=== PATIENT | male | born 1965 | race Caucasian/White ===

== ENCOUNTER 2020-08-03 23:10 | Observation (INO) | payer BC, SELFPAY ==
--- NOTE | ~2020-08-03 | XR_ITS ---
EXAMINATION: XR chest 1V portable DATE: 08/03/2020 23:50 INDICATION: Left-sided chest pain TECHNIQUE: frontal view of the chest was obtained. COMPARISON: Chest radiograph dated 07/10/2018 FINDINGS: The lungs remain clear with no focal airspace opacities, pulmonary edema, pleural effusion or pneumot horax. The cardiomediastinal silhouette is normal. Visualized bones and soft tissues are unremarkable . IMPRESSION: 1. No acute cardiopulmonary disease. Reviewed, dictated and finalized at location A.
[2020-08-03 23:22] VITALS: BP 203/107; PULSE 75; RESP 12; O2SAT 99
--- NOTE | 2020-08-03 23:36 | ECG_ITS ---
Measurements Intervals [place] Rate: 71 P: 36 [place]: 173 QRS: 26 QRSD: 132 T: 15 QT: 385 QTc: 420 Interpretive Statements SINUS RHYTHM INTRAVENTRICULAR CONDUCTION DELAY BORDERLINE T WAVE ABNORMALITY- INFERIOR LEADS BASELINE WANDER- V3 BORDERLINE ECG Electronically Signed On 08-04-2020 7:06:55 CDT by Inocencio Alvarez D.O.
--- NOTE | 2020-08-03 23:44 | ED.CHESTPAIN ---
HPI - Chest Pain General Chief Complaint: Chest Pain Stated Complaint: Chest Pain Time Seen by Provider: 08/03/20 23:12 Source: RN notes reviewed History of Present Illness HPI narrative: Patient presents emergency department from home for chest pain. Patient states he has been having some mid to left-sided chest pain described as a tightness over the past day that has been intermittent and has not been present for the past 2 hours the pain radiates in the left arm. States is associated with a feeling of indigestion. He denies any fevers or chills shortness of breath abdominal pain vomiting or any other symptoms patient denies any previous cardiac history Related Data Home Medications Medication Instructions Recorded Confirmed aspirin 81 mg PO DAILY 08/25/19 09/01/19 Allergies Allergy/AdvReac Type Severity Reaction Status Date / Time Penicillins Allergy Intermediate Hives Verified 09/29/19 12:39 Review of Systems Review of Systems: Narrative: Gen.: Denies fevers or chills ENT: Denies congestion Respiratory: Denies shortness of breath or cough CV: See HPI GI: Denies abdominal pain nausea, emesis or diarrhea Musculoskeletal: Denies back pain or muscle pain Neuro: Denies numbness, tingling, weakness or focal weakness Skin: Denies rash Except as documented, all other systems reviewed and negative [facility] Past Medical History Medical History Diabetes HTN (hypertension) Obesity Family History Family History (System 09/29/19 @ 12:39 by Comfort Phillip) Mother Family history of malignant neoplasm of breast in first degree relative Patient's mother is Father Patient's father is Social History Social History Smoking status: Never smoker Second hand tobacco smoke exposure: No Alcohol intake: current Gender identity (if verbalized by the patient): Male Exam Narrative: Exam Narrative: APPEARANCE: No acute distress, nontoxic, resting in bed EYES: EOMI HEENT: Normocephalic, atraumatic, OMM RESPIRATORY: No respiratory distress Clear to auscultation bilaterally with no rhonchi wheezing or rales. CARDIOVASCULAR: Regular rate and rhythm without murmurs rubs or gallops. Chest: Tender palpation over the left anterior chest wall no swelling or ecchymosis ABDOMINAL: Soft, nondistended, mild tenderness epigastric region no tenderness right upper quadrant, left upper quadrant right lower quadrant left lower quadrant no rebound or guarding MUSCULOSKELETAl: Moves all extremities. No clubbing, cyanosis or edema. NEURO: Awake and alert. Following commands, speech normal, no focal deficits SKIN:: Warm, dry. No rashes lesions or abrasions PSYCHIATRIC: Normal affect/mood, Course Course Emergency Course: Patient states pain is resolved at this time Discussed with Dr. Hall presentation work-up. Agrees with admission of the chest pain center Discussed with patient and family results of workup and diagnosis. Discussed need for admission. Patient and family understand and agree to current treatment plan Vital Signs Vital signs: Vital Signs Pulse Rate 75 08/03/20 23:22 Respiratory Rate 12 08/03/20 23:22 Blood Pressure 203/107 H 08/03/20 23:22 Pulse Oximetry 99 08/03/20 23:22 Pulse Rate 65 08/04/20 01:06 Respiratory Rate 12 08/04/20 01:06 Blood Pressure 146/88 H 08/04/20 01:06 Pulse Oximetry 94 08/04/20 01:06 MDM - Chest Pain Lab Data Result diagrams: 08/03/20 23:40 08/03/20 23:40 Labs: Lab Results 08/03/20 08/03/20 08/03/20 Range/Units 23:40 23:40 23:40 WBC 8.1 (4.5-10.0) K/mm3 RBC 5.40 (4.6-6.20) M/mm3 Hgb 16.4 (14.0-18.0) g/dL Hct 46.7 (42.0-52.0) % MCV 86.5 (80-100) fl MCH 30.4 (26-34) pg MCHC 35.1 (32-36) g/dl RDW 12.2 (11.5-14.5) % Plt Count 361
[2020-08-03 23:51] LABS: Basophils Percent Auto 0.2 % (0.2-1.2); Eosinophils Absolute Auto 0.1 K/mm3 (0-0.3); Eosinophils Percent Auto 0.6 % (0-4.4); Hematocrit 46.7 % (42.0-52.0); Hemoglobin 16.4 g/dL (14.0-18.0); Immature Granulocyte Absolute 0.03 K/mm3 (0.00-0.031); Immature Granulocyte Percent A 0.4 % (0-0.5); Lymphocytes Absolute Auto 2.82 K/mm3 (0.9-3.2); Mean Corpuscular HGB Conc 35.1 g/dl (32-36); Mean Corpuscular Hemoglobin 30.4 pg (26-34); Mean Corpuscular Volume 86.5 fl (80-100); Mean Platelet Volume 10.8 fl (7.4-10.4); Monocytes Absolute Auto 0.6 K/mm3 (0.1-0.6); Monocytes Percent Auto 7.1 % (2.6-8.5); Neutrophils Absolute Auto 4.6 K/mm3 (1.3-6.7); Neutrophils Percent Auto 56.7 % (45.5-73.1); Platelet Count Result 361 k/mm3 (150-375); Red Cell Distribution Width 12.2 % (11.5-14.5); White Blood Count 8.1 K/mm3 (4.5-10.0)
[2020-08-04] VITALS (13 sets, daily range): BP systolic 129–168; BP diastolic 82–99; PULSE 63–80; RESP 12–20; TEMP 36.2–36.8; O2SAT 94–100; BMI 29.1
[2020-08-04 00:01] LABS: Prothrombin Time 12.7 Seconds (11.1-14.7)
[2020-08-04 00:16] LABS: Troponin I < 0.012 ng/mL (0.000-0.034)
[2020-08-04 00:20] LABS: Alanine Aminotransferase 45 U/L (4-50); Albumin Level 5.1 g/dL (3.5-5.1); Alkaline Phosphatase 66 U/L (38-126); Anion Gap 12 mmol/L (8-16); Aspartate Amino Transferase 30 U/L (17-59); Bilirubin,Total 0.9 mg/dL (0.2-1.3); Blood Urea Nitrogen 16 mg/dL (9-20); Calcium 9.9 mg/dL (8.4-10.2); Carbon Dioxide 29 mmol/L (22-30); Chloride 98 mmol/L (98-107); Estimated Glomerular Filt Rate > 60; Glucose 193 mg/dL (75-110); Lipase 170 U/L (23-300); Potassium 3.4 mmol/L (3.4-5.0); Sodium 139 mmol/L (137-145)
[2020-08-04] MEDS: ONDANSETRON INJ 4 MG/2 ML VIAL IV PUSH (00:51)
[2020-08-04] MEDS: KETOROLAC 30 MG/ML VIAL (*BKC) IV PUSH (00:51)
--- NOTE | 2020-08-04 01:21 | PC.NURSE ---
called lab to add on Lipid Panel
[2020-08-04 01:31] LABS: Cholesterol 247 mg/dL (0-200); HDL Direct 36 mg/dL; Triglycerides 419 mg/dL (<150)
[2020-08-04] MEDS: ASPIRIN 81 MG CHEWABLE TABLET 324 MG PO (01:33)
[2020-08-04 01:42] LABS: LDL Cholesterol Direct 158 mg/dL
--- NOTE | 2020-08-04 01:46 | ADMGEN ---
This patient, Kennedy Diaz, was admitted to IMU Room 213-01 at 0145. Patient/family oriented to hospital policies and general routines including ID bracelet, bed and alarms, visiting hours, pain management, procedures, bathroom and other care routines, personal items, smoking policy, room service/diet, and visiting hours. Information on how to activate the Rapid Response Team has been discussed. Patient/Family are encouraged to report perceived risks to care and to ask questions if they do not understand what they are told or what they should do.
[2020-08-04 03:04] LABS: Troponin I < 0.012 ng/mL (0.000-0.034)
[2020-08-04 06:40] LABS: Troponin I < 0.012 ng/mL (0.000-0.034)
--- NOTE | 2020-08-04 07:19 | ECG_ITS ---
Measurements Intervals [place] Rate: 74 P: 38 [place]: 162 QRS: 25 QRSD: 113 T: 2 QT: 390 QTc: 435 Interpretive Statements SINUS RHYTHM WITH SINUS ARRHYTHMIA INTRAVENTRICULAR CONDUCTION DELAY NONSPECIFIC T-WAVE ABNORMALITY- INFERIOR LEADS BORDERLINE ECG Electronically Signed On 08-04-2020 19:32:59 CDT by Inocencio Alvarez D.O.
[2020-08-04 09:43] LABS: Glucose Point of Care 170 (65-105)
--- NOTE | 2020-08-04 14:26 | PM.SD ---
Same Day Admit/Disch: HPI History of Present Illness Chief complaint: Chest Pain Narrative: Kennedy Diaz is a 54 year old male who is followed by Dr. Burkett for is hypertension, mixed hyperlipidemia and diabetes, who was admitted for chest and epigastric discomfort for observation. The patient has no history of heart disease but does have a ?nervous stomach.? Yesterday he had some chest discomfort which started the morning and he felt like his fingers on the left side were tingling. He had poor appetite. His epigastric area felt like ?there were 2 monsters in there fighting.? He took a Pepcid which usually works but this time it did not. He had some hot flashes and sometimes it felt like he needed to take a deep breath. He came to the emergency room and his blood pressure was 203/107. He was given a GI cocktail with relief and admitted. His troponins were all negative. EKGs without ischemic changes. The patient has hypertension, diabetes, hypertriglyceridemia, and hypercholesterolemia. He was tried on atorvastatin once but had elevated liver enzymes. No smoking. He admits that he is noncompliant with his b.i.d. metformin, and does not eat well. He has been trying to exercise, doing a fast run/jog in the park which is a about a mile, with no particular exertional problems. He also walks a lot at work. He was considering getting a coronary calcium scan. Nonsmoker, no family history of premature CAD. 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 Has 2 grown sons and 1 teenage daughter. . Smoking status: Never smoker Second hand tobacco smoke exposure: No Alcohol intake: never Substance use: never Gender identity (if verbalized by the patient): Male Spiritual care concerns: No Same Day Admit/Disch: Med Pre-admit Medications Home Medications Medication Instructions Recorded Confirmed Type aspirin 81 mg PO DAILY 08/25/19 08/04/20 History metformin 500 mg tablet 500 mg PO BID #180 tablet 05/19/20 08/04/20 Rx valsartan 320 1 tablet PO DAILY #90 tablet 05/19/20 08/04/20 Rx mg-hydrochlorothiazide 25 mg tablet omeprazole magnesium [Prilosec OTC] 20 mg PO DAILY #30 tablet 08/04/20 Rx Exam Narrative: Exam Narrative: Well-developed well-nourished overweight white male sitting with his in no distress Const: General: cooperative, healthy appearing, comfortable and well developed HENMT: Head: normal to inspection Ears: hearing grossly normal bilaterally General nose exam: Normal external nose present Face and sinus: normal facial exam Mouth: Yes moist mucous membranes abnormal Eyes: General: appearance normal, both eyes and all related structures Neck: Neck: supple Thyroid: thyroid normal Lymphatic: no lymphadenopathy noted Resp: Effort & Inspection: normal respiratory effort Auscultation: clear to auscultation bilaterally Cardio: Jugular venous distension: no JVD Rate: regular rate Rhythm: regular rhythm Peripheral pulses: posterior tibial pulses present and dorsalis pedis present GI: Inspection: normal to inspection and non-distended GI Palp: No abdominal tenderness and No Hepatosplenomegaly present Skin: General skin exam: no rashes or lesions noted Neuro: General: patient oriented x3 Speech: normal speech Motor exam (neuro): Motor abnormalities not present Extrem: Right lower extremity: no edema Left lower extremity: no edema Psych:
== END 2020-08-04 15:48 | disposition home or self-care (01) ==
LOC: ANHED 08-04 01:25 → ANHIMU 08-04 01:39
PROVIDERS: Admitting Provider Internal Medicine Cardiovascular Disease; Emergency Provider Emergency Medicine; PCP Internal Medicine; Visit Provider Internal Medicine Cardiovascular Disease
DX: R07.9 Chest pain, unspecified (principal); I10 Essential (primary) hypertension; E78.5 Hyperlipidemia, unspecified; E78.1 Pure hyperglyceridemia; E11.9 Type 2 diabetes mellitus without complications
CPT/HCPCS: 36415; 71045; 80053; 80061; 83690; 84484; 85025; 85610; 85730; 93005; 96374; 96375; 99285; A9270; G0378; J1885; J2405

== ENCOUNTER 2020-08-14 09:29 | Outpatient (CLI) | payer BC, SELFPAY ==
--- NOTE | 2020-08-14 09:34 | EST_ITS ---
Patient Info Name: Kennedy Diaz Age: 54 years : 1965 Gender: Male Ht: 69 in Wt: 194 lbs BSA: 2.09 m2 HR: 71 bpm Exam Date: 08/14/2020 9:34 AM Exam Location: [facility] Patient Status: Outpatient Admit Date: 08/14/2020 Staff Ordering Physician: Sinan Burkett DO Archery Instructor: Andrew Bailey RDCS, RT Attending Provider: INOCENCIO ESCUDERO Referring Physician: Madelaine FISCHER; Exercise Technologist: Andrew Bailey RDCS, RT Exercise Physician: Inocencio Escudero DO Exam Type: CA stress echo Study Info Indications R07.89 - Other chest pain Treadmill exercise stress echocardiogram is performed. Summary 1. 1. Abnormal Venancio exercise stress test for ischemic ST changes by ECG criteria. 2. 2. Good functional capacity, achieving 9.8 METs of workload. 3. 3. Baseline hypertension with hypertensive response to exercise. 4. 4. Appropriate HR response to exercise. 5. 5. Appropriate HR recovery at 1 minute post exercise. 6. 6. Normal stress echocardiogram for ischemia by wall motion analysis. 7. 7. Patient informed of the above results. Stress Echo Findings Left Ventricle Appropriate increase in LV endocardial thickening with systole. Appropriate augmentation of contractility with systole. No wall motion abnormality. Left Ventricle Normal LV systolic function, no wall motion abnormality. Protocol: Venancio Stress ECG Details Stage: REST Duration (min): 10 min : 10 sec Speed (mph): 0.0 Grade (%): 0 HR (bpm): 81 SBP (mmHg): 154 DBP (mmHg): 82 METS: --- Stage: REST Duration (min): 19 min : 1 sec Speed (mph): 0.0 Grade (%): 0 HR (bpm): 91 SBP (mmHg): 154 DBP (mmHg): 82 METS: --- Stage: STAGE 1 Duration (min): 1 min : 0 sec Speed (mph): 1.7 Grade (%): 10 HR (bpm): 97 SBP (mmHg): 154 DBP (mmHg): 82 METS: --- Stage: STAGE 1 Duration (min): 2 min : 0 sec Speed (mph): 1.7 Grade (%): 10 HR (bpm): 102 SBP (mmHg): 154 DBP (mmHg): 82 METS: --- Stage: STAGE 1 Duration (min): 3 min : 0 sec Speed (mph): 1.7 Grade (%): 10 HR (bpm): 103 SBP (mmHg): 200 DBP (mmHg): 88 METS: --- Stage: STAGE 2 Duration (min): 1 min : 0 sec Speed (mph): 2.5 Grade (%): 12 HR (bpm): 118 SBP (mmHg): 200 DBP (mmHg): 88 METS: --- Stage: STAGE 2 Duration (min): 2 min : 0 sec Speed (mph): 2.5 Grade (%): 12 HR (bpm): 118 SBP (mmHg): 216 DBP (mmHg): 76 METS: --- Stage: STAGE 2 Duration (min): 3 min : 0 sec Speed (mph): 2.5 Grade (%): 12 HR (bpm): 120 SBP (mmHg): 216 DBP (mmHg): 76 METS: --- Stage: STAGE 3 Duration (min): 1 min : 0 sec Speed (mph): 3.4 Grade (%): 14 HR (bpm): 140 SBP (mmHg): 236 DBP (mmHg): 76 METS: --- Stage: STAGE 3 Duration (min): 2 min : 0 sec Speed (mph): 0.0 Grade (%): 0 HR (bpm): 143 SBP (mmHg): 236 DBP (mmHg): 76 METS: --- Stage:
== END 2020-08-14 09:30 | disposition home or self-care (01) ==
PROVIDERS: PCP Internal Medicine; Visit Provider Internal Medicine
DX: R07.9 Chest pain, unspecified (principal)
CPT/HCPCS: 93351

== ENCOUNTER 2022-02-20 00:39 | Day surgery (SDC) | payer BC, SELFPAY ==
[2022-02-03 14:48] VITALS: BMI 29.6
[2022-02-20 07:37] VITALS: BMI 29.3
[2022-02-20] MEDS: LACTATED RINGERS 1,000 ML 150 ML IV CONT (07:52)
--- NOTE | 2022-02-20 07:53 | WPDANESEPPF ---
Anes - Initial Pre Proc Eval Procedure: Operation Date: 02/20/22 08:30 Proposed Procedures p Screening Colonoscopy - Robinson Cash MD Date/Time: 02/20/22 07:53 Surgeon: Robinson Cash MD Pre Op Diagnosis: neoplasm screening Patient Data Age: 56 Gender: M Height: 1.75 m Weight: 90.2 kg Allergies Allergy/AdvReac Type Severity Reaction Status Date / Time Penicillins Allergy Intermediate Hives Verified 11/24/21 15:09 Home Medications Medication Instructions Recorded Confirmed Type aspirin 81 mg PO DAILY 08/25/19 02/03/22 History blood sugar diagnostic #100 ea 11/13/20 02/03/22 Rx omega-3 fatty acids 1,000 mg 3,000 mg PO DAILY cap 05/22/21 02/03/22 History capsule carvedilol 12.5 mg tablet See Rx Instructions .ROUTE 07/23/21 02/03/22 Rx .COMPLEX #60 tablet pravastatin 20 mg tablet See Rx Instructions .ROUTE 07/24/21 02/03/22 Rx .COMPLEX #30 tablet metformin 500 mg tablet 500 mg PO BID #180 tablet 01/31/22 02/03/22 Rx valsartan 320 1 tablet PO DAILY #90 tablet 01/31/22 02/03/22 Rx mg-hydrochlorothiazide 25 mg tablet amlodipine 5 mg tablet 5 mg PO DAILY #90 tablet 02/08/22 02/20/22 Rx Patient hx anesthesia problems: none Family hx anesthesia problems: none Results Review: All pre-operative results and documents have been reviewed as part of the pre-operative evaluation. 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 Has 2 grown sons and 1 teenage daughter. . Smoking status: Never smoker Second hand tobacco smoke exposure: No Alcohol intake: never Substance use: never Substance use type: does not use Living arrangements: with family Gender identity (if verbalized by the patient): Male Spiritual care concerns: No Anes - Eval Final PreProcedure Day of Procedure 02/20/22 07:53 Patient weight: overweight Heart: regular rate and rhythm Lungs: clear to auscultation Airway: Mallampati scale class II Neurological: alert and oriented Last oral intake: >/= 8 hours ASA classification: III Emergent: no Anesthetic plan: proceed Anesthesia type and monitoring: general GIVS and standard monitoring Results Review: All pre-operative results and documents have been reviewed as part of the pre-operative evaluation. Informed Consent: The patient's anesthetic plan and its attendant risks and benefits were discussed with the patient/family/POA. Questions were solicited and answers provided to the satisfaction of the patient/family/POA.
[2022-02-20 07:59] LABS: Glucose Point of Care 188 mg/dl (65-105)
--- NOTE | 2022-02-20 08:16 | WPDGICN ---
Assessment and Plan Assessment and plan (1) Encounter for screening colonoscopy: Code(s): Z12.11 - Encounter for screening for malignant neoplasm of colon Status: Acute Assessment and Plan: Patient presents today for screening colonoscopy. Reports that his son may have had colon polyps. Plan is for surveillance colonoscopy now further recommendations may be given after endoscopy. GI Consult Note Consult date/time: 02/20/22 08:16 HPI: Kennedy Diaz is a 56 year old male Presents for screening colonoscopy. Patient reports his current weight appetite and bowel movements are normal. He denies abdominal pain. He has had no bleeding. Family history is significant his son had colon polyps. Patient states there are many cancers within his family. He presents today for neoplasia screening. 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 Has 2 grown sons and 1 teenage daughter. . Smoking status: Never smoker Second hand tobacco smoke exposure: No Alcohol intake: never Substance use: never Substance use type: does not use Living arrangements: with family Gender identity (if verbalized by the patient): Male Spiritual care concerns: No Meds Home Medications and Allergies Home Medications Medication Instructions Recorded Confirmed Type aspirin 81 mg PO DAILY 08/25/19 02/03/22 History blood sugar diagnostic #100 ea 11/13/20 02/03/22 Rx omega-3 fatty acids 1,000 mg 3,000 mg PO DAILY cap 05/22/21 02/03/22 History capsule carvedilol 12.5 mg tablet See Rx Instructions .ROUTE 07/23/21 02/03/22 Rx .COMPLEX #60 tablet pravastatin 20 mg tablet See Rx Instructions .ROUTE 07/24/21 02/03/22 Rx .COMPLEX #30 tablet metformin 500 mg tablet 500 mg PO BID #180 tablet 01/31/22 02/03/22 Rx valsartan 320 1 tablet PO DAILY #90 tablet 01/31/22 02/03/22 Rx mg-hydrochlorothiazide 25 mg tablet amlodipine 5 mg tablet 5 mg PO DAILY #90 tablet 02/08/22 02/20/22 Rx Allergies Allergy/AdvReac Type Severity Reaction Status Date / Time Penicillins Allergy Intermediate Hives Verified 11/24/21 15:09 Exam Narrative: Physical exam reveals patient to be alert. Vital signs stable. HEENT exam is unremarkable. Patient is anicteric. Lungs are clear to auscultation and percussion. Heart is without murmur or extra sounds. Abdominal exam bowel sounds are present soft nontender with no hepatosplenomegaly. Digital external rectal exam is normal.
[2022-02-20] MEDS: SIMETHICONE ORAL SUSPENSION 20 MG/0.3 ML 30 ML BOTTLE 0.6 ML IRRIGATION (08:28)
[2022-02-20 08:36] VITALS: BP 95/53; PULSE 65; RESP 24; O2SAT 99
[2022-02-20 08:46] VITALS: BP 97/54; PULSE 66; RESP 23; O2SAT 99
[2022-02-20 08:56] VITALS: BP 105/60; PULSE 60; RESP 13; O2SAT 95
== END 2022-02-20 09:05 | disposition home or self-care (01) ==
PROVIDERS: PCP Internal Medicine; Visit Provider Internal Medicine Gastroenterology
PROC: 0DJD8ZZ Inspection of Lower Intestinal Tract, Via Natural or Artificial Opening Endoscopic (ICD-10-PCS; CPT 45378; principal; 2022-02-20 08:30)
DX: Z12.11 Encounter for screening for malignant neoplasm of colon (principal); K64.8 Other hemorrhoids; K57.30 Diverticulosis of large intestine without perforation or abscess without bleeding; E11.9 Type 2 diabetes mellitus without complications; I10 Essential (primary) hypertension; E78.1 Pure hyperglyceridemia; E78.00 Pure hypercholesterolemia, unspecified; E66.9 Obesity, unspecified; Z68.29 Body mass index [BMI] 29.0-29.9, adult; Z79.84 Long term (current) use of oral hypoglycemic drugs
CPT/HCPCS: 45378; 82948; J2704; J7120

== ENCOUNTER 2023-02-10 14:39 | Outpatient (CLI) | payer OTHER, SELFPAY ==
--- NOTE | ~2023-02-10 | XR_ITS ---
EXAM: XR shoulder LT min 2V DATE: 02/10/2023 15:05 HISTORY: Cervicalgia; Lt sided neck pain radiates into Lt shoulder . COMPARISON: None available. FINDINGS: Normal mineralization. No fracture or dislocation. No lytic or blastic lesion. Mild AC virgen nt and moderate glenohumeral joint degenerative change. No erosion or periosteal change. Soft tissues within normal limits. IMPRESSION: Polyarticular osteoarthritis of the left shoulder. Reviewed, dictated and finalized at location K.
--- NOTE | ~2023-02-10 | XR_ITS ---
EXAMINATION: XR_CERV2-3V_CR DATE: 02/10/2023 15:06 INDICATION: Left neck pain. TECHNIQUE: 3 views of cervical spine were obtained. COMPARISON: Cervical spine radiographs 09/17/2009 FINDINGS: There is 5 degrees levocurvature of cervicothoracic spine. Vertebral body heights are joann l. There is mildly decreased disc height at C5-C6. At C5-C6, there is severe right and mild left unco vertebral joint osteoarthritis. There is multilevel mild facet joint osteoarthritis. At C4-C5, there is mild central canal stenosis. No prevertebral soft tissue swelling. IMPRESSION: 1. Mild cervical spondylosis. Reviewed, dictated and finalized at location A.
== END 2023-02-10 14:40 | disposition home or self-care (01) ==
LOC: ANHIMG 14:43
PROVIDERS: PCP Internal Medicine; Visit Provider Internal Medicine
DX: M25.512 Pain in left shoulder (principal); M47.812 Spondylosis without myelopathy or radiculopathy, cervical region; M15.9 Polyosteoarthritis, unspecified
CPT/HCPCS: 72040; 73030

== ENCOUNTER 2024-04-05 19:11 | Emergency (ER) | payer OTHER, SELFPAY ==
--- NOTE | ~2024-04-05 | XR_ITS ---
EXAMINATION: XR chest 2V Exam Date/Time: 04/05/2024 19:33 CDT HISTORY: chest pain and tightening x 3 days Comparison: 08/03/2020. RESULT: Lines, tubes, and devices: None. Lungs and pleura: Clear. Cardiomediastinal silhouette: Stable. Other: No acute osseous or upper abdominal finding. IMPRESSION: No acute cardiopulmonary process. Reviewed, dictated and finalized at location K.
--- NOTE | 2024-04-05 19:13 | ECG_ITS ---
Test Date: 2024-04-05 19:20:05 Measurements Intervals [place] Rate: 71 P: 45 [place]: 175 QRS: 30 QRSD: 115 T: -40 QT: 397 QTc: 434 Interpretive Statements SINUS RHYTHM MODERATE INTRAVENTRICULAR CONDUCTION DELAY [110+ ms QRS DURATION] NONSPECIFIC ST & T-WAVE ABNORMALITY No previous ECG available for comparison Electronically Signed On 04-06-2024 13:33:07 CDT by Willow Schmidt M.D.
[2024-04-05 19:16] VITALS: BP 154/97; PULSE 73; RESP 20; TEMP 36.8; O2SAT 100
[2024-04-05] MEDS: ASPIRIN 81 MG CHEWABLE TABLET 324 MG PO (19:25)
[2024-04-05 19:27] LABS: Basophils Percent Auto 0.4 % (0.2-1.2); Eosinophils Absolute Auto 0.1 K/mm3 (0-0.3); Eosinophils Percent Auto 1.2 % (0-4.4); Hematocrit 45.8 % (42.0-52.0); Immature Granulocyte Absolute 0.02 K/mm3 (0.00-0.031); Immature Granulocyte Percent A 0.3 % (0-0.5); Lymphocytes Absolute Auto 2.78 K/mm3 (0.9-3.2); Lymphocytes Percent Auto 36.2 % (18.3-44.2); Mean Corpuscular HGB Conc 34.9 g/dl (32-36); Mean Corpuscular Hemoglobin 30.4 pg (26-34); Mean Corpuscular Volume 87.1 fl (80-100); Monocytes Absolute Auto 0.7 K/mm3 (0.1-0.6); Monocytes Percent Auto 8.8 % (2.6-8.5); Neutrophils Absolute Auto 4.1 K/mm3 (1.3-6.7); Neutrophils Percent Auto 53.1 % (45.5-73.1); Platelet Count Result 354 k/mm3 (150-375); Red Blood Count 5.26 M/mm3 (4.6-6.20); Red Cell Distribution Width 12.2 % (11.5-14.5); White Blood Count 7.7 K/mm3 (4.5-10.0)
[2024-04-05 19:32] VITALS: BP 144/83; PULSE 73; RESP 14; O2SAT 100
[2024-04-05 19:36] LABS: Alanine Aminotransferase 37 U/L (6-50); Albumin Level 5.5 g/dL (3.5-5.1); Alkaline Phosphatase 60 U/L (38-126); Anion Gap 11 mmol/L (4-12); Aspartate Amino Transferase 28 U/L (17-59); Bilirubin,Total 0.8 mg/dL (0.2-1.3); Blood Urea Nitrogen 23 mg/dL (9-20); Calcium 9.8 mg/dL (8.4-10.2); Carbon Dioxide 29 mmol/L (22-30); Chloride 101 mmol/L (98-107); Estimated CRCL calculation 80 ml/min; Estimated Glomerular Filt Rate > 60; Glucose 234 mg/dL (65-110); Lipase 235 U/L (23-300); Partial Thromboplastin Time 23.8 Seconds (22.3-36.8); Potassium 3.5 mmol/L (3.4-5.0); Sodium 141 mmol/L (137-145)
[2024-04-05 19:48] LABS: Troponin I < 0.012 ng/mL (0.000-0.034)
--- NOTE | 2024-04-05 20:14 | ED.CHESTPAIN ---
HPI - Chest Pain General Chief Complaint: Chest Pain Stated Complaint: chest pain Time Seen by Provider: 04/05/24 19:37 History of Present Illness HPI narrative: Patient is a 58-year-old male who presents to the emergency department this evening complaining of chest pressure. Patient states that symptoms started approximately 1 week ago while he was golfing but they were not severe and he wanted to finishes a golf round. Patient states that since then he has been having these intermittent chest pressure. Today, he states that he can reproduce the pain when he presses on his left chest, however, last week he says that the pain was not reproducible. Patient does follow-up with a screening unit registered nurse regularly and does have known coronary artery disease. No stents or previous heart attacks. Patient does have 2 areas in his LAD which have less than 30% stenosis. His screening unit registered nurse, Dr. Alvarez who has been following this regularly. He last saw his screening unit registered nurse a few weeks ago and he states that everything was normal. Patient is currently denying any active chest pain. Denies any additional symptoms including any fevers or chills at home, any shortness of breath. No additional symptoms or concerns at this time. Related Data Home Medications Medication Instructions Recorded Confirmed aspirin 81 mg chewable tablet 81 mg PO DAILY 08/25/19 02/16/24 omega-3 fatty acids 1,000 mg 3,000 mg PO DAILY 05/22/21 02/16/24 capsule (Fish Oil Concentrate) Allergies Allergy/AdvReac Type Severity Reaction Status Date / Time Penicillins Allergy Intermediate Hives Verified 02/14/24 07:48 Review of Systems Review of Systems: All systems are reviewed and are negative unless stated otherwise in the HPI. 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 Has 2 grown sons and 1 teenage daughter. . Smoking status: Never smoker Second hand tobacco smoke exposure: No Alcohol intake: never Substance use: never Substance use type: does not use Lack of Transportation: No Lack of Food: Never True Current Housing: I Have Housing Concerned About Future Housing: No Difficulty Paying Gas/Electric Bills: No Difficulty Paying for Meds: No Currently Unemployed: No Education: Bachelor's Degree Difficulty w/ Childcare or Family Care: No Living arrangements: with family Gender identity (if verbalized by the patient): Male Spiritual care concerns: No Exam Narrative: General: Alert, awake, afebrile, in no acute distress. HEENT: PERRL, no rhinorrhea, no post nasal drip, oropharynx clear. Cardiovascular: Regular rate and rhythm, no murmurs, rubs or gallops, no peripheral edema. Respiratory: Clear to auscultation bilaterally, no tachypnea, no wheezing, no rhonchi, no rubs, no respiratory distress. Abdomen: Soft, nontender, nondistended, no rebound, no guarding, no peritoneal signs. Musculoskeletal: No joint swelling or deformity, normal muscle tone. Skin: No rashes or petechia, no signs of infection. Neurological: Alert and oriented to person, place, and time. Follows all commands. No focal deficits, speech is clear and fluent. Course Vital Signs Vital signs: Vital Signs Temperature 98.3 F 04/05/24 19:16 Pulse Rate 73 04/05/24 19:16 Respiratory Rate 20 04/05/24 19:16 Blood Pressure 154/97 H 04/05/24 19:16 Pulse Oximetry 100 04/05/24 19:16 Oxygen Delivery Room Air
[2024-04-05 20:17] VITALS: BP 155/88; PULSE 77; RESP 16; O2SAT 100
== END 2024-04-05 20:18 | disposition home or self-care (01) ==
PROVIDERS: Emergency Medicine; Emergency Provider Emergency Medicine; PCP Internal Medicine
DX: R07.89 Other chest pain (principal); I25.10 Atherosclerotic heart disease of native coronary artery without angina pectoris; I10 Essential (primary) hypertension; E78.00 Pure hypercholesterolemia, unspecified; E78.1 Pure hyperglyceridemia; E11.9 Type 2 diabetes mellitus without complications; E66.9 Obesity, unspecified; Z68.29 Body mass index [BMI] 29.0-29.9, adult; Z79.84 Long term (current) use of oral hypoglycemic drugs; Z79.899 Other long term (current) drug therapy; I45.9 Conduction disorder, unspecified; R94.31 Abnormal electrocardiogram [ECG] [EKG]
CPT/HCPCS: 36415; 71046; 80053; 83690; 84484; 85025; 85610; 85730; 93005; 99284; A9270

== ENCOUNTER 2024-04-26 11:44 | Outpatient (CLI) | payer OTHER, SELFPAY ==
--- NOTE | ~2024-04-26 | XR_ITS ---
XR abdomen/kub 1V Ordering provider: Tolu Stockton DO History: . Unspecified abdominal pain X 1 MONTH HX KIDNEY STONES . Comparison: September 01, 2019 FINDINGS: BOWEL: Nonobstructive bowel gas pattern. ORGANOMEGALY: None. SIGNIFICANT PATHOLOGIC CALCIFICATIONS: None. OTHER: No free air is seen under the diaphragm. Bilateral hip osteoarthritic changes. IMPRESSION: NO ACUTE ABDOMINAL FINDINGS. Reviewed, dictated and finalized at location A.
== END 2024-04-26 11:45 | disposition home or self-care (01) ==
LOC: ANHIMG 11:45
PROVIDERS: PCP Internal Medicine; Visit Provider Internal Medicine
DX: R10.32 Left lower quadrant pain (principal)
CPT/HCPCS: 74018